=== PATIENT | male | born 1955 | race Two or more races ===

== ENCOUNTER 2023-10-09 15:53 | Inpatient (IN) | payer MEDICARE, MEDICAID ==
[~2023-10-09] VITALS: Ht 195.6 cm; Wt 108.0 kg
[2023-10-09 16:20] VITALS: PULSE 160; RESP 19; O2SAT 100
[2023-10-09] MEDS: ADENOSINE 6 MG/2 ML INJ IV ONE ×4 (16:32→16:47)
[2023-10-09] MEDS: dilTIAZem 25 MG/5 ML VIAL IV ONE ×5 (16:38→23:17)
[2023-10-09] MEDS: DIGOXIN 0.25 MG TAB PO ONE (16:46)
[2023-10-09] MEDS: DIGOXIN 0.25 MG TAB ONE (16:47)
[2023-10-09 16:55] LABS: Basophils # (auto) 0.1 10 ^3/uL (0-0.2); Basophils % (auto) 0.3 % (0.0-2.0); Eosinophils # (auto) 0 10 ^3/uL (0-0.8); Hematocrit 48.2 % (41.0-53.0); Hemoglobin 15.8 g/dL (13.5-17.5); Lymphocytes # (auto) 0.6 10 ^3/uL (0.4-5.4); Mean Corpuscular Hemoglobin 31.2 pg (28.0-32.0); Mean Corpuscular Hgb Conc. 32.8 g/dL (32.0-36.0); Monocytes # (auto) 1.6 10 ^3/uL (0-1.3); Monocytes % (auto) 8.1 % (0.0-12.0); Neutrophils # (auto) 17.5 10 ^3/uL (1.6-8.6); Neutrophils % (auto) 88.6 % (37.0-80.0); Nucleated Red Blood Cells % 0.1 %; Red Blood Cells 5.07 10^6/uL (4.5-5.90); Red Cell Distribution Width 14.3 % (11.8-14.3); White Blood Cell 19.8 10^3/uL (4.4-10.8)
[2023-10-09 17:28] LABS: Lactic Acid w/Reflex 3.9 mmol/L (0.4-2.0)
[2023-10-09] MEDS: dilTIAZem 125mg/125ml BAG KIT 125 ML IV ONE (17:29)
[2023-10-09 17:39] LABS: Erythrocyte Sedimentation Rate 8 mm/hr (0-20)
[2023-10-09] MEDS: AMIODARONE BOLUS KIT 100 ML IV ONE (17:42)
[2023-10-09] MEDS: VANCOMYCIN 1GM/200ML 200 ML IV ONE (17:46)
[2023-10-09] MEDS: SODIUM CHLORIDE 0.9% 1,000 ML IV ONE ×2 (17:52→18:43)
[2023-10-09] MEDS: METOPROLOL TARTRATE 1MG/1ML-5ML VIAL IV ONE ×2 (18:13)
[2023-10-09] MEDS: AMIODARONE 450mg/250ml AE 250 ML IV SCH (18:24)
[2023-10-09] MEDS: DIGOXIN (250MCG/ML) 2 ML AMPULE IV ONE ×2 (18:43→19:01)
[2023-10-09] MEDS ORDERED: PIPERACILLIN-TAZOB 3.375GM 100 ML IV ONE (18:45)
[2023-10-09] MEDS: dilTIAZem 125mg/125ml BAG KIT 100 ML IV SCH (18:45)
[2023-10-09 19:04] LABS: Chloride 93 mmol/L (98-107); Potassium 4.7 mmol/L (3.5-5.1); Sodium 123 mmol/L (136-145)
[2023-10-09 19:05] LABS: Anion Gap 18 (5-15); Calcium 9.2 mg/dL (8.5-10.1); Carbon Dioxide 12 mmol/L (20-30)
[2023-10-09 19:10] LABS: BUN/Creatinine Ratio 14.7 (10.0-20.0); Blood Urea Nitrogen 15 mg/dL (9-23)
[2023-10-09 19:13] LABS: Glucose 487 mg/dL (74-106)
[2023-10-09 19:30] VITALS: PULSE 99; RESP 20; O2SAT 99
[2023-10-09 19:51] LABS: LDL Cholesterol 45 mg/dL (< 100); Triglycerides 181 mg/dL (< 150)
[2023-10-09 19:53] LABS: Cholesterol 97 mg/dL (< 200); HDL Cholesterol 9 mg/dL (40-59)
[2023-10-09] MEDS: CLINDAMYCIN 900MG IV 50 ML IV ONE (20:12)
[2023-10-09] MEDS ORDERED: DOCUSATE SOD 100 MG CAP PO PRN (20:45)
[2023-10-09] MEDS ORDERED: ONDANSETRON HCL 4 MG/2 ML VIAL IV PRN (20:45)
[2023-10-09] MEDS ORDERED: VANCOMYCIN PER PHARMACY 0 MG IV SCH (20:45)
[2023-10-09] MEDS ORDERED: DEXTROSE (50%) 50ML SYRG IV PRN (20:45)
[2023-10-09] MEDS ORDERED: MORPHINE SULFATE INJ 2 MG/ml SYRG IV PRN (20:45)
[2023-10-09] MEDS ORDERED: NITROGLYCERIN 0.4 MG SL TAB SL PRN (20:45)
[2023-10-09] MEDS: SODIUM CHLORIDE 0.9% 1,000 ML IV SCH (21:31)
[2023-10-09] MEDS: ENOXAPARIN SOD 100 MG/1 ML SYRINGE SC SCH (21:31)
[2023-10-09] MEDS: PIPERACILLIN-TAZOB 3.375GM 100 ML IV ONE ×2 (21:31)
[2023-10-09] MEDS: ACCU-CHEK COMFORT CURVE STRIP VI SCH (23:08)
[2023-10-09] MEDS: InsuLIN REG 1unit/0.01ml Soln (100units/ml) SC SCH (23:10)
[2023-10-09] MEDS: AMIODARONE HCL 200 MG TAB PO SCH (23:17)
[2023-10-09] MEDS ORDERED: AMIODARONE 450mg/250ml AE 250 ML IV SCH (23:45)
[2023-10-10] VITALS (70 sets, daily range): BP systolic 94–145; BP diastolic 44–100; PULSE 11–159; RESP 0–26; TEMP 96.6–98.2; O2SAT 93–100
[2023-10-10] MEDS ORDERED: AMIODARONE 450mg/250ml AE 250 ML IV SCH (00:15)
[2023-10-10] MEDS: VANCOMYCIN 1GM/200ML 200 ML IV SCH (04:34)
[2023-10-10] MEDS: CLINDAMYCIN 600MG IV 50 ML IV SCH (04:35)
[2023-10-10] MEDS: PIPERACILLIN-TAZOB 3.375GM 100 ML IV SCH (06:22)
[2023-10-10 06:30] LABS: Urine Epithelial Cast None Seen /hpf (<5)
[2023-10-10] MEDS: MORPHINE SULFATE INJ 2 MG/ml SYRG IV PRN (06:31)
[2023-10-10 06:36] LABS: Urine Bacteria NONE SEEN /hpf (None Seen); Urine Blood Negative /uL (Negative); Urine Clarity Clear (Clear); Urine Color Yellow (Yellow); Urine Protein, UAD Negative (Negative); Urine Specific Gravity 1.041 (1.001-1.035); Urine WBC <1 /hpf (0 - 3)
[2023-10-10 06:53] LABS: Amphetamine Screen, Urine Neg (NEGATIVE); Barbiturate Scree,Urine Neg (NEGATIVE); Benzodiazephine Screen, Urine Neg (NEGATIVE); Cannabinoid Screen, Urine Neg (NEGATIVE); Cocaine Screen, Urine Neg (NEGATIVE); Opiate Scree,Urine Neg (NEGATIVE); Phencyclidine Screen, Urine Neg (NEGATIVE)
[2023-10-10] MEDS: BUPIVACAINE 0.5% P/F INJ 10 ML VIAL ONE (07:12)
[2023-10-10] MEDS: LIDOCAINE 1% HCL (LOCAL ANESTH.) INJ 20ML MDV ONE (07:13)
[2023-10-10 07:28] LABS: Basophils # (auto) 0 10 ^3/uL (0-0.2); Basophils % (auto) 0.4 % (0.0-2.0); Eosinophils # (auto) 0 10 ^3/uL (0-0.8); Eosinophils % (auto) 0.1 % (0.0-7.0); Hematocrit 42.5 % (41.0-53.0); Hemoglobin 13.9 g/dL (13.5-17.5); Lymphocytes # (auto) 0.6 10 ^3/uL (0.4-5.4); Lymphocytes % (auto) 4.7 % (10.0-50.0); Mean Corpuscular Hemoglobin 31.6 pg (28.0-32.0); Mean Corpuscular Hgb Conc. 32.8 g/dL (32.0-36.0); Mean Corpuscular Volume 96.4 fL (80.0-100.0); Monocytes # (auto) 1.3 10 ^3/uL (0-1.3); Monocytes % (auto) 10.2 % (0.0-12.0); Neutrophils % (auto) 84.6 % (37.0-80.0); Red Blood Cells 4.41 10^6/uL (4.5-5.90); Red Cell Distribution Width 14.2 % (11.8-14.3)
[2023-10-10 07:42] LABS: Alanine Aminotransferase 55 U/L (7-40); Albumin 2.3 g/dL (3.2-4.8); Alkaline Phosphatase 92 U/L (46-116); Anion Gap 11 (5-15); Aspartate Aminotransferase 64 U/L (13-40); BUN/Creatinine Ratio 20.4 (10.0-20.0); Blood Urea Nitrogen 22 mg/dL (9-23); Calcium 8.1 mg/dL (8.5-10.1); Carbon Dioxide 17 mmol/L (20-30); Chloride 98 mmol/L (98-107); Potassium 4.2 mmol/L (3.5-5.1); Sodium 126 mmol/L (136-145)
[2023-10-10 07:43] LABS: Bilirubin, Total 0.9 mg/dL (0.2-1.0); Total Protein 5.5 g/dL (5.7-8.2)
[2023-10-10 07:45] LABS: Glucose 525 mg/dL (74-106)
[2023-10-10] MEDS ORDERED: DEXTROSE (50%) 50ML SYRG IV PRN (08:30)
[2023-10-10] MEDS: INSULIN DRIP 100 UNIT/100ML 100 ML IV SCH ×2 (09:09→12:30)
[2023-10-10] MEDS: ACCU-CHEK COMFORT CURVE STRIP VI SCH ×2 (09:10→21:38)
[2023-10-10 09:44] LABS: Base Excess -3.8 mmol/L (-2.0-2.0)
[2023-10-10] MEDS: DAKINS QUARTER STR 0.125% (NaHypochlorite) 473 ML TOPICAL SOL TOP ONE (09:46)
[2023-10-10] MEDS: NICOTINE 7MG/24HR TOPICAL PATCH TD SCH (10:00)
[2023-10-10] MEDS ORDERED: DIGOXIN 0.125 MG TAB PO SCH (10:00)
[2023-10-10] MEDS: PANTOPRAZOLE 40 MG/10 ML VIAL INJ IV SCH (10:22)
[2023-10-10] MEDS: InsuLIN REG 1unit/0.01ml Soln (100units/ml) IV ONE ×2 (12:18→12:44)
[2023-10-10] MEDS: INSULIN LANTUS (GLARGINE) 1 /0.01ml (100units/ml) SC ONE (12:18)
[2023-10-10] MEDS ORDERED: INSULIN DRIP 100 UNIT/100ML 100 ML IV SCH (12:30)
[2023-10-10] MEDS ORDERED: HYDROmorphone HCL 2 MG/ML VL/or syr ONE (13:49)
[2023-10-10] MEDS ORDERED: MIDAZOLAM HCL 2MG/2ML 2ml VIAL (1mg/ml) ONE (13:49)
[2023-10-10] MEDS ORDERED: fentaNYL CITRATE 100 MCG/2 ML VL ONE (13:49)
[2023-10-10] MEDS: CEFEPIME 2GM/50ML NS 50 ML IV SCH (14:00)
[2023-10-10] MEDS ORDERED: ETOMIDATE (2MG/ML) 20ML VIAL IV ONE (14:18)
[2023-10-10 14:24] LABS: Alanine Aminotransferase 59 U/L (7-40); Albumin 2.6 g/dL (3.2-4.8); Alkaline Phosphatase 84 U/L (46-116); Anion Gap 6 (5-15); Aspartate Aminotransferase 63 U/L (13-40); BUN/Creatinine Ratio 38.3 (10.0-20.0); Bilirubin, Total 0.9 mg/dL (0.2-1.0); Blood Urea Nitrogen 36 mg/dL (9-23); Calcium 8.5 mg/dL (8.5-10.1); Carbon Dioxide 23 mmol/L (20-30); Chloride 103 mmol/L (98-107); Glucose 303 mg/dL (74-106); Potassium 3.3 mmol/L (3.5-5.1); Sodium 132 mmol/L (136-145)
[2023-10-10] MEDS ORDERED: MIDAZOLAM HCL 2MG/2ML 2ml VIAL (1mg/ml) IV PRN (14:30)
[2023-10-10] MEDS ORDERED: MORPHINE SULFATE 4 MG/ML SYR/VIAL IV PRN (14:30)
[2023-10-10] MEDS ORDERED: ONDANSETRON HCL 4 MG/2 ML VIAL IV PRN (14:30)
[2023-10-10] MEDS ORDERED: HYDROmorphone HCL 2 MG/ML VL/or syr IV PRN (14:30)
[2023-10-10] MEDS ORDERED: ePHEDrine SULFATE 50 MG/ML AMP IV PRN (14:30)
[2023-10-10] MEDS ORDERED: LABETALOL HCL 5 MG/ML 4ML SYRINGE IV PRN (14:30)
[2023-10-10] MEDS: POVIDONE IODINE 10 % TOPICAL OINT 30GM TOP ONE (15:05)
[2023-10-10] MEDS: NOREPINEPHRINE 8 MG/250ML KIT 250 ML IV SCH (16:30)
[2023-10-10 17:02] LABS: Basophils # (auto) 0.1 10 ^3/uL (0-0.2); Basophils % (auto) 0.6 % (0.0-2.0); Eosinophils # (auto) 0 10 ^3/uL (0-0.8); Eosinophils % (auto) 0.1 % (0.0-7.0); Hematocrit 41.3 % (41.0-53.0); Hemoglobin 13.6 g/dL (13.5-17.5); Lymphocytes # (auto) 0.7 10 ^3/uL (0.4-5.4); Lymphocytes % (auto) 3.3 % (10.0-50.0); Mean Corpuscular Hemoglobin 30.9 pg (28.0-32.0); Mean Corpuscular Hgb Conc. 32.9 g/dL (32.0-36.0); Mean Corpuscular Volume 93.9 fL (80.0-100.0); Monocytes # (auto) 2.9 10 ^3/uL (0-1.3); Monocytes % (auto) 13.3 % (0.0-12.0); Neutrophils # (auto) 17.8 10 ^3/uL (1.6-8.6); Neutrophils % (auto) 82.7 % (37.0-80.0); Red Blood Cells 4.39 10^6/uL (4.5-5.90); Red Cell Distribution Width 14.1 % (11.8-14.3); White Blood Cell 21.5 10^3/uL (4.4-10.8)
[2023-10-10 17:20] LABS: Alanine Aminotransferase 55 U/L (7-40); Albumin 2.5 g/dL (3.2-4.8); Alkaline Phosphatase 95 U/L (46-116); Anion Gap 6 (5-15); Aspartate Aminotransferase 64 U/L (13-40); BUN/Creatinine Ratio 35.4 (10.0-20.0); Bilirubin, Total 0.8 mg/dL (0.2-1.0); Blood Urea Nitrogen 34 mg/dL (9-23); Calcium 8.2 mg/dL (8.5-10.1); Carbon Dioxide 23 mmol/L (20-30); Chloride 106 mmol/L (98-107); Glucose 104 mg/dL (74-106); Potassium 3.3 mmol/L (3.5-5.1); Sodium 135 mmol/L (136-145); Total Protein 5.7 g/dL (5.7-8.2)
[2023-10-10] MEDS: POTASSIUM CHL 20MEQ/100ML 100 ML IV SCH (18:24)
[2023-10-10] MEDS: dilTIAZem 120MG ER CAP PO ONE (18:25)
[2023-10-10] MEDS: HYDROmorphone HCL 2 MG/ML VL/or syr IV ONE (19:10)
[2023-10-10] MEDS: ATORVASTATIN 20 MG TAB PO SCH (21:32)
[2023-10-10] MEDS: InsuLIN REG 1unit/0.01ml Soln (100units/ml) SC SCH (21:35)
[2023-10-10] MEDS: INSULIN LANTUS (GLARGINE) 1 /0.01ml (100units/ml) SC SCH (21:45)
[2023-10-10] MEDS: HYDROmorphone HCL 2 MG/ML VL/or syr IV PRN (22:43)
[2023-10-11] VITALS (54 sets, daily range): BP systolic 95–144; BP diastolic 55–73; PULSE 70–155; RESP 7–25; TEMP 96.9–98.9; O2SAT 85–100
[2023-10-11 03:46] LABS: Basophils # (auto) 0 10 ^3/uL (0-0.2); Basophils % (auto) 0.1 % (0.0-2.0); Eosinophils # (auto) 0 10 ^3/uL (0-0.8); Hematocrit 39.8 % (41.0-53.0); Hemoglobin 13.1 g/dL (13.5-17.5); Lymphocytes # (auto) 0.5 10 ^3/uL (0.4-5.4); Lymphocytes % (auto) 3.4 % (10.0-50.0); Mean Corpuscular Hemoglobin 31.3 pg (28.0-32.0); Mean Corpuscular Hgb Conc. 32.8 g/dL (32.0-36.0); Mean Corpuscular Volume 95.3 fL (80.0-100.0); Monocytes # (auto) 0.5 10 ^3/uL (0-1.3); Monocytes % (auto) 3.6 % (0.0-12.0); Neutrophils # (auto) 12.4 10 ^3/uL (1.6-8.6); Neutrophils % (auto) 92.9 % (37.0-80.0); Red Blood Cells 4.17 10^6/uL (4.5-5.90); Red Cell Distribution Width 14.1 % (11.8-14.3); White Blood Cell 13.3 10^3/uL (4.4-10.8)
[2023-10-11 04:03] LABS: Alanine Aminotransferase 52 U/L (7-40); Albumin 2.3 g/dL (3.2-4.8); Alkaline Phosphatase 73 U/L (46-116); Anion Gap 7 (5-15); Aspartate Aminotransferase 84 U/L (13-40); BUN/Creatinine Ratio 46.4 (10.0-20.0); Blood Urea Nitrogen 39 mg/dL (9-23); Calcium 7.7 mg/dL (8.7-10.4); Carbon Dioxide 21 mmol/L (20-30); Chloride 104 mmol/L (98-107); Magnesium 1.9 mg/dL (1.6-2.6); Potassium 4.6 mmol/L (3.5-5.1); Sodium 132 mmol/L (136-145)
[2023-10-11 04:04] LABS: Bilirubin, Total 0.7 mg/dL (0.2-1.0); Total Protein 5.5 g/dL (5.7-8.2)
[2023-10-11 04:06] LABS: Glucose 353 mg/dL (74-106)
[2023-10-11] MEDS: InsuLIN REG 1unit/0.01ml Soln (100units/ml) SC SCH ×2 (06:28→21:33)
[2023-10-11] MEDS ORDERED: ENOXAPARIN SOD 40 MG/0.4 ML SYRINGE SC SCH (10:00)
[2023-10-11] MEDS ORDERED: dilTIAZem 120MG ER CAP PO SCH (10:00)
[2023-10-11] MEDS: PHENYLEPHRINE INJ 80 MG in SODIUM CHL 0.9% 242 ML IV SCH (10:15)
[2023-10-11] MEDS: VANCOMYCIN 1GM/200ML 200 ML IV SCH (10:36)
[2023-10-11] MEDS: dilTIAZem 125mg/125ml BAG KIT 125 ML IV SCH (10:38)
[2023-10-11] MEDS: DIGOXIN 0.125 MG TAB PO SCH (10:40)
[2023-10-11] MEDS: MAGNESIUM SULFATE 1GM/100ML 100 ML IV ONE (10:41)
[2023-10-11] MEDS: ASPirin 81 mg TAB PO SCH (10:43)
[2023-10-11] MEDS: ENOXAPARIN SOD 100 MG/1 ML SYRINGE SC SCH (11:13)
[2023-10-11] MEDS: dilTIAZem HCL 180MG ER CAP PO SCH (11:26)
[2023-10-11] MEDS: FLECAINIDE ACETATE 50 MG TAB PO SCH (11:27)
[2023-10-11] MEDS: HYDROmorphone HCL 2 MG/ML VL/or syr IV PRN (14:15)
[2023-10-11] MEDS: HYDROcodone-ACET 5/325MG TAB PO PRN (15:29)
[2023-10-11] MEDS ORDERED: INSULIN LANTUS (GLARGINE) 1 /0.01ml (100units/ml) SC SCH (17:00)
[2023-10-11] MEDS ORDERED: INSULIN LISPRO (HUMAN) 100 UNITS/ML ML SC SCH (17:00)
[2023-10-11] MEDS ORDERED: DEXTROSE (50%) 50ML SYRG IV PRN (18:00)
[2023-10-11] MEDS: INSULIN LANTUS (GLARGINE) 1 /0.01ml (100units/ml) SC SCH (20:07)
[2023-10-11] MEDS: ACCU-CHEK COMFORT CURVE STRIP VI SCH (21:32)
[2023-10-12] VITALS (48 sets, daily range): BP systolic 116–171; BP diastolic 55–96; PULSE 69–139; RESP 9–26; TEMP 98.2–98.5; O2SAT 89–97
[2023-10-12 04:19] LABS: Basophils # (auto) 0 10 ^3/uL (0-0.2); Basophils % (auto) 0.1 % (0.0-2.0); Eosinophils # (auto) 0 10 ^3/uL (0-0.8); Hemoglobin 10.3 g/dL (13.5-17.5); Lymphocytes # (auto) 0.5 10 ^3/uL (0.4-5.4); Lymphocytes % (auto) 3.5 % (10.0-50.0); Mean Corpuscular Hemoglobin 31.5 pg (28.0-32.0); Mean Corpuscular Hgb Conc. 31.1 g/dL (32.0-36.0); Mean Corpuscular Volume 101.3 fL (80.0-100.0); Monocytes # (auto) 0.9 10 ^3/uL (0-1.3); Monocytes % (auto) 6.5 % (0.0-12.0); Neutrophils # (auto) 12.5 10 ^3/uL (1.6-8.6); Neutrophils % (auto) 89.9 % (37.0-80.0); Red Blood Cells 3.26 10^6/uL (4.5-5.90); Red Cell Distribution Width 15.1 % (11.8-14.3)
[2023-10-12] MEDS: InsuLIN REG 1unit/0.01ml Soln (100units/ml) SC SCH ×2 (05:55→16:52)
[2023-10-12 07:39] LABS: Alanine Aminotransferase 59 U/L (7-40); Albumin 2.3 g/dL (3.2-4.8); Alkaline Phosphatase 97 U/L (46-116); Aspartate Aminotransferase 91 U/L (13-40); BUN/Creatinine Ratio 24.1 (10.0-20.0); Bilirubin, Total 0.7 mg/dL (0.2-1.0); Blood Urea Nitrogen 20 mg/dL (9-23); Glucose 399 mg/dL (74-106)
[2023-10-12 07:40] LABS: Chloride 103 mmol/L (98-107); Potassium 5.1 mmol/L (3.5-5.1); Sodium 128 mmol/L (136-145)
[2023-10-12 07:43] LABS: Anion Gap 6 (5-15); Calcium 7.9 mg/dL (8.5-10.1); Carbon Dioxide 19 mmol/L (20-30)
[2023-10-12 11:50] LABS: Hematocrit 38.8 % (41.0-53.0); Hemoglobin 12.8 g/dL (13.5-17.5)
[2023-10-12] MEDS: INSULIN LANTUS (GLARGINE) 1 /0.01ml (100units/ml) SC SCH (21:26)
[2023-10-13] VITALS (32 sets, daily range): BP systolic 116–160; BP diastolic 65–93; PULSE 85–157; RESP 12–25; TEMP 97.6–98.4; O2SAT 92–97
[2023-10-13 12:18] LABS: Basophils # (auto) 0 10 ^3/uL (0-0.2); Basophils % (auto) 0.4 % (0.0-2.0); Chloride 106 mmol/L (98-107); Eosinophils # (auto) 0 10 ^3/uL (0-0.8); Eosinophils % (auto) 0.5 % (0.0-7.0); Hematocrit 36.4 % (41.0-53.0); Lymphocytes # (auto) 0.6 10 ^3/uL (0.4-5.4); Lymphocytes % (auto) 11.4 % (10.0-50.0); Mean Corpuscular Hemoglobin 31.3 pg (28.0-32.0); Mean Corpuscular Hgb Conc. 33.1 g/dL (32.0-36.0); Mean Corpuscular Volume 94.7 fL (80.0-100.0); Monocytes # (auto) 0.5 10 ^3/uL (0-1.3); Monocytes % (auto) 10.4 % (0.0-12.0); Neutrophils # (auto) 3.9 10 ^3/uL (1.6-8.6); Neutrophils % (auto) 77.3 % (37.0-80.0); Nucleated Red Blood Cells % 0.2 %; Potassium 3.6 mmol/L (3.5-5.1); Red Blood Cells 3.84 10^6/uL (4.5-5.90); Red Cell Distribution Width 14.4 % (11.8-14.3); Sodium 132 mmol/L (136-145)
[2023-10-13 12:19] LABS: Anion Gap 4 (5-15); Carbon Dioxide 22 mmol/L (20-30)
[2023-10-13 12:20] LABS: Calcium 7.3 mg/dL (8.7-10.4)
[2023-10-13 12:25] LABS: BUN/Creatinine Ratio 29.7 (10.0-20.0); Blood Urea Nitrogen 22 mg/dL (9-23); Magnesium 1.6 mg/dL (1.6-2.6)
[2023-10-13 12:28] LABS: Glucose 278 mg/dL (74-106)
[2023-10-13] MEDS ORDERED: HYDROmorphone HCL 2 MG/ML VL/or syr IV PRN (13:00)
[2023-10-13] MEDS: HYDROmorphone HCL 2 MG/ML VL/or syr IV PRN (22:30)
[2023-10-14] VITALS (16 sets, daily range): BP systolic 120–150; BP diastolic 61–80; PULSE 92–151; RESP 10–31; TEMP 97.8–98.2; O2SAT 89–97
[2023-10-14 03:19] LABS: Basophils # (auto) 0 10 ^3/uL (0-0.2); Basophils % (auto) 0.7 % (0.0-2.0); Eosinophils # (auto) 0 10 ^3/uL (0-0.8); Eosinophils % (auto) 0.5 % (0.0-7.0); Hemoglobin 12.6 g/dL (13.5-17.5); Lymphocytes # (auto) 0.6 10 ^3/uL (0.4-5.4); Lymphocytes % (auto) 8.2 % (10.0-50.0); Mean Corpuscular Hemoglobin 31.1 pg (28.0-32.0); Mean Corpuscular Hgb Conc. 33.1 g/dL (32.0-36.0); Monocytes # (auto) 0.6 10 ^3/uL (0-1.3); Monocytes % (auto) 7.8 % (0.0-12.0); Neutrophils % (auto) 82.8 % (37.0-80.0); Red Blood Cells 4.04 10^6/uL (4.5-5.90); Red Cell Distribution Width 14.4 % (11.8-14.3); White Blood Cell 7.3 10^3/uL (4.4-10.8)
[2023-10-14 03:23] LABS: Alanine Aminotransferase 43 U/L (7-40); Albumin 2.2 g/dL (3.2-4.8); Alkaline Phosphatase 75 U/L (46-116); Anion Gap 1 (5-15); Aspartate Aminotransferase 52 U/L (13-40); BUN/Creatinine Ratio 23.2 (10.0-20.0); Bilirubin, Total 0.7 mg/dL (0.2-1.0); Blood Urea Nitrogen 13 mg/dL (9-23); Calcium 7.4 mg/dL (8.7-10.4); Carbon Dioxide 24 mmol/L (20-30); Chloride 105 mmol/L (98-107); Glucose 268 mg/dL (74-106); Magnesium 1.5 mg/dL (1.6-2.6); Potassium 3.7 mmol/L (3.5-5.1); Sodium 130 mmol/L (136-145); Total Protein 6.4 g/dL (5.7-8.2)
[2023-10-14] MEDS: dilTIAZem 25 MG/5 ML VIAL IV ONE (03:34)
[2023-10-14] MEDS: INSULIN LANTUS (GLARGINE) 1 /0.01ml (100units/ml) SC SCH (22:19)
[2023-10-15] VITALS (15 sets, daily range): BP systolic 125–136; BP diastolic 61–79; PULSE 63–147; RESP 13–26; TEMP 97.6–98.3; O2SAT 90–95
[2023-10-15 05:04] LABS: Basophils # (auto) 0 10 ^3/uL (0-0.2); Basophils % (auto) 0.2 % (0.0-2.0); Eosinophils # (auto) 0.1 10 ^3/uL (0-0.8); Eosinophils % (auto) 0.6 % (0.0-7.0); Hematocrit 35.4 % (41.0-53.0); Hemoglobin 11.6 g/dL (13.5-17.5); Lymphocytes # (auto) 0.6 10 ^3/uL (0.4-5.4); Lymphocytes % (auto) 7.5 % (10.0-50.0); Mean Corpuscular Hemoglobin 31.3 pg (28.0-32.0); Mean Corpuscular Hgb Conc. 32.7 g/dL (32.0-36.0); Mean Corpuscular Volume 95.8 fL (80.0-100.0); Monocytes # (auto) 0.7 10 ^3/uL (0-1.3); Monocytes % (auto) 9.4 % (0.0-12.0); Neutrophils # (auto) 6.5 10 ^3/uL (1.6-8.6); Neutrophils % (auto) 82.3 % (37.0-80.0); Red Blood Cells 3.69 10^6/uL (4.5-5.90); Red Cell Distribution Width 14.4 % (11.8-14.3); White Blood Cell 7.9 10^3/uL (4.4-10.8)
[2023-10-15 05:14] LABS: Calcium 7.4 mg/dL (8.7-10.4); Chloride 104 mmol/L (98-107); Potassium 3.5 mmol/L (3.5-5.1); Sodium 131 mmol/L (136-145)
[2023-10-15 05:15] LABS: Anion Gap 3 (5-15); Carbon Dioxide 24 mmol/L (20-30)
[2023-10-15 05:20] LABS: BUN/Creatinine Ratio 21.8 (10.0-20.0); Blood Urea Nitrogen 12 mg/dL (9-23); Glucose 278 mg/dL (74-106)
[2023-10-15] MEDS: MAGNESIUM SULFATE 1GM/100ML 100 ML IV SCH (09:24)
[2023-10-15] MEDS: METOPROLOL TARTRATE 50 MG TAB PO SCH (09:25)
[2023-10-15] MEDS: DIGOXIN 0.25 MG TAB PO SCH (09:25)
[2023-10-15] MEDS: POTASSIUM CHL 20 Meq TABLET PO ONE (09:27)
[2023-10-15] MEDS ORDERED: BACTRIM 5MG/KG Q8HR PER RX 10 ML IV SCH (13:30)
[2023-10-15] MEDS ORDERED: D5W 5% IV SCH ×3 (14:30→16:00)
[2023-10-15] MEDS ORDERED: SULFAMETH TRIMETH IV SCH ×3 (14:30→16:00)
[2023-10-15] MEDS: SULFAMETH TRIMETH IV SCH (16:00)
[2023-10-15] MEDS: D5W 5% IV SCH (16:00)
[2023-10-15] MEDS: INSULIN LANTUS (GLARGINE) 1 /0.01ml (100units/ml) SC SCH (21:57)
[2023-10-16] VITALS (16 sets, daily range): BP systolic 114–131; BP diastolic 60–68; PULSE 46–89; RESP 11–28; TEMP 97.3–98.3; O2SAT 90–97
[2023-10-16 04:49] LABS: Basophils # (auto) 0 10 ^3/uL (0-0.2); Basophils % (auto) 0.2 % (0.0-2.0); Eosinophils # (auto) 0.1 10 ^3/uL (0-0.8); Eosinophils % (auto) 0.7 % (0.0-7.0); Hematocrit 36.4 % (41.0-53.0); Lymphocytes # (auto) 0.7 10 ^3/uL (0.4-5.4); Lymphocytes % (auto) 5.8 % (10.0-50.0); Mean Corpuscular Hemoglobin 31.4 pg (28.0-32.0); Mean Corpuscular Hgb Conc. 32.9 g/dL (32.0-36.0); Mean Corpuscular Volume 95.6 fL (80.0-100.0); Monocytes # (auto) 1.2 10 ^3/uL (0-1.3); Monocytes % (auto) 9.5 % (0.0-12.0); Neutrophils # (auto) 10.9 10 ^3/uL (1.6-8.6); Neutrophils % (auto) 83.8 % (37.0-80.0); Red Blood Cells 3.81 10^6/uL (4.5-5.90); Red Cell Distribution Width 14.7 % (11.8-14.3)
[2023-10-16 04:59] LABS: Alanine Aminotransferase 39 U/L (7-40); Albumin 2.2 g/dL (3.2-4.8); Alkaline Phosphatase 100 U/L (46-116); Anion Gap 2 (5-15); Aspartate Aminotransferase 42 U/L (13-40); BUN/Creatinine Ratio 23.2 (10.0-20.0); Blood Urea Nitrogen 16 mg/dL (9-23); Calcium 7.5 mg/dL (8.7-10.4); Carbon Dioxide 24 mmol/L (20-30); Chloride 102 mmol/L (98-107); Glucose 284 mg/dL (74-106); Magnesium 1.9 mg/dL (1.6-2.6); Potassium 4.2 mmol/L (3.5-5.1); Sodium 128 mmol/L (136-145)
[2023-10-16 05:00] LABS: Bilirubin, Total 0.8 mg/dL (0.2-1.0); Phosphorus 2.3 mg/dL (2.4-5.1); Total Protein 6.8 g/dL (5.7-8.2)
[2023-10-16] MEDS: MAGNESIUM SULFATE 1GM/100ML 100 ML IV SCH (09:35)
[2023-10-16] MEDS: SODIUM PHOSPHATES 20 MEQ in SODIUM CHL 0.9% 100 ML IV ONE (09:35)
[2023-10-16] MEDS ORDERED: SULFAMETH-TRIMETH 80/16MG-ML 20 ML in D5W 5% 500 ML IV SCH (14:00)
[2023-10-16] MEDS: MEROPENEM 2 GM in SODIUM CHL 0.9% 250 ML IV SCH (14:55)
[2023-10-17] VITALS (23 sets, daily range): BP systolic 106–150; BP diastolic 55–96; PULSE 94–136; RESP 14–35; TEMP 97.2–98.3; O2SAT 90–96
[2023-10-17 04:33] LABS: Basophils # (auto) 0 10 ^3/uL (0-0.2); Basophils % (auto) 0.3 % (0.0-2.0); Eosinophils # (auto) 0.1 10 ^3/uL (0-0.8); Hemoglobin 12.2 g/dL (13.5-17.5); Lymphocytes # (auto) 0.8 10 ^3/uL (0.4-5.4); Lymphocytes % (auto) 9.2 % (10.0-50.0); Mean Corpuscular Hemoglobin 31.4 pg (28.0-32.0); Mean Corpuscular Volume 95.3 fL (80.0-100.0); Monocytes % (auto) 11.4 % (0.0-12.0); Neutrophils # (auto) 7.1 10 ^3/uL (1.6-8.6); Neutrophils % (auto) 78.1 % (37.0-80.0); Red Blood Cells 3.88 10^6/uL (4.5-5.90); Red Cell Distribution Width 14.9 % (11.8-14.3); White Blood Cell 9.1 10^3/uL (4.4-10.8)
[2023-10-17 04:51] LABS: Alanine Aminotransferase 38 U/L (7-40); Albumin 2.1 g/dL (3.2-4.8); Alkaline Phosphatase 110 U/L (46-116); Anion Gap 2 (5-15); Aspartate Aminotransferase 51 U/L (13-40); BUN/Creatinine Ratio 25.8 (10.0-20.0); Blood Urea Nitrogen 17 mg/dL (9-23); Calcium 7.2 mg/dL (8.7-10.4); Carbon Dioxide 25 mmol/L (20-30); Chloride 101 mmol/L (98-107); Glucose 251 mg/dL (74-106); Potassium 4.4 mmol/L (3.5-5.1); Sodium 128 mmol/L (136-145)
[2023-10-17 04:52] LABS: Bilirubin, Total 0.7 mg/dL (0.2-1.0); Total Protein 6.6 g/dL (5.7-8.2)
[2023-10-17] MEDS: APIXABAN 5 MG TAB PO SCH (09:59)
[2023-10-17] MEDS: FLECAINIDE ACETATE 50 MG TAB PO SCH (09:59)
[2023-10-17] MEDS: INSULIN LANTUS (GLARGINE) 1 /0.01ml (100units/ml) SC SCH (22:02)
[2023-10-18] VITALS (16 sets, daily range): BP systolic 110–136; BP diastolic 68–96; PULSE 116–132; RESP 12–31; TEMP 97.8–98.6; O2SAT 92–96
[2023-10-18 05:07] LABS: Basophils # (auto) 0 10 ^3/uL (0-0.2); Basophils % (auto) 0.5 % (0.0-2.0); Eosinophils # (auto) 0.1 10 ^3/uL (0-0.8); Eosinophils % (auto) 1.1 % (0.0-7.0); Hematocrit 36.6 % (41.0-53.0); Hemoglobin 12.1 g/dL (13.5-17.5); Lymphocytes # (auto) 0.8 10 ^3/uL (0.4-5.4); Mean Corpuscular Hemoglobin 31.7 pg (28.0-32.0); Mean Corpuscular Hgb Conc. 33.1 g/dL (32.0-36.0); Mean Corpuscular Volume 95.6 fL (80.0-100.0); Monocytes # (auto) 0.7 10 ^3/uL (0-1.3); Monocytes % (auto) 12.4 % (0.0-12.0); Neutrophils # (auto) 4.4 10 ^3/uL (1.6-8.6); Red Blood Cells 3.83 10^6/uL (4.5-5.90); Red Cell Distribution Width 14.7 % (11.8-14.3); White Blood Cell 6.1 10^3/uL (4.4-10.8)
[2023-10-18 05:24] LABS: Alanine Aminotransferase 40 U/L (7-40); Albumin 2.2 g/dL (3.2-4.8); Alkaline Phosphatase 124 U/L (46-116); Anion Gap 2 (5-15); Aspartate Aminotransferase 47 U/L (13-40); BUN/Creatinine Ratio 23.3 (10.0-20.0); Bilirubin, Total 0.8 mg/dL (0.2-1.0); Blood Urea Nitrogen 14 mg/dL (9-23); Calcium 7.3 mg/dL (8.7-10.4); Carbon Dioxide 26 mmol/L (20-30); Chloride 100 mmol/L (98-107); Glucose 232 mg/dL (74-106); Potassium 4.3 mmol/L (3.5-5.1); Sodium 128 mmol/L (136-145); Total Protein 6.6 g/dL (5.7-8.2)
[2023-10-18] MEDS: FLECAINIDE ACETATE 50 MG TAB PO ONE (09:26)
[2023-10-18] MEDS: FUROSEMIDE 20 MG/2 ML VIAL IV SCH (09:27)
[2023-10-18] MEDS: MAGNESIUM OXIDE 400 MG TAB PO SCH (09:29)
[2023-10-18] MEDS ORDERED: HYDR-4902 PO (10:41)
[2023-10-18] MEDS ORDERED: APIX5TAB PO (10:57)
[2023-10-18] MEDS ORDERED: ATOR20TA50 PO (10:57)
[2023-10-18] MEDS ORDERED: CIPR500T4 PO (11:07)
[2023-10-18] MEDS ORDERED: FLE50T PO (11:07)
[2023-10-18] MEDS ORDERED: DIGO0.25 PO (11:07)
[2023-10-18] MEDS ORDERED: DILT-102 PO (11:07)
[2023-10-18] MEDS: FLECAINIDE ACETATE 50 MG TAB PO SCH (21:44)
[2023-10-19] VITALS: BP 133/76; PULSE 115; PULSE 131; RESP 15; RESP 19; TEMP 98.2; O2SAT 95; O2SAT 98
[2023-10-19 02:00] VITALS: BP 130/71; PULSE 115; RESP 20; RESP 30; O2SAT 93; O2SAT 97
[2023-10-19 04:00] VITALS: BP 136/79; PULSE 119; PULSE 120; RESP 20; RESP 22; O2SAT 95
[2023-10-19 06:00] VITALS: BP 127/80; PULSE 121; RESP 13; RESP 20; TEMP 98.4; O2SAT 92; O2SAT 95
[2023-10-19] MEDS ORDERED: METO25TA93 PO (06:55)
[2023-10-19 08:00] VITALS: BP 133/83; PULSE 122; RESP 19; RESP 23; TEMP 97.6; O2SAT 92; O2SAT 93
[2023-10-19 08:27] VITALS: BP 121/78; PULSE 133; TEMP 36.9
[2023-10-19] MEDS ORDERED: METOPROLOL SUCCINATE XL 50 MG TAB PO SCH (10:00)
== END 2023-10-19 09:50 | disposition home health service (06) | DRG 710 ==
LOC: EDBD 15:53 → ER 15:53 → TELE 20:42 → ICU WEST 10-10 04:17 → DOU IN ICU 10-13 17:45
PROVIDERS: ADMIT Internal Medicine Pulmonary Disease; ATTEND Emergency Medicine
PROC: 0Y6J0Z1 Detachment at Left Lower Leg, High, Open Approach (ICD-10-PCS; principal; 2023-10-10 14:09)
DX: A41.9 Sepsis, unspecified organism (principal); M72.6 Necrotizing fasciitis; I21.A1 Myocardial infarction type 2; E11.10 Type 2 diabetes mellitus with ketoacidosis without coma; I10 Essential (primary) hypertension; I47.10 Supraventricular tachycardia, unspecified; F17.210 Nicotine dependence, cigarettes, uncomplicated; L08.9 Local infection of the skin and subcutaneous tissue, unspecified; E11.621 Type 2 diabetes mellitus with foot ulcer; I47.19 Other supraventricular tachycardia; I48.92 Unspecified atrial flutter; M86.8X7 Other osteomyelitis, ankle and foot; E11.69 Type 2 diabetes mellitus with other specified complication; L97.529 Non-pressure chronic ulcer of other part of left foot with unspecified severity; I48.91 Unspecified atrial fibrillation; F15.10 Other stimulant abuse, uncomplicated; Z91.199 Patient's noncompliance with other medical treatment and regimen due to unspecified reason; Z82.5 Family history of asthma and other chronic lower respiratory diseases; Z82.49 Family history of ischemic heart disease and other diseases of the circulatory system
CPT/HCPCS: 36415; 36600; 71045; 71275; 73700; 76870; 80048; 80053; 80061; 80162; 80202; 80307; 81001; 82805; 82962; 83036; 83605; 83735; 83880; 84100; 84443; 84484; 85014; 85018; 85025; 85379; 85652; 86850; 86900; 86901; 87040; 87077; 87081; 87186; 87205; 93005; 93306; 93926; 93970; 96365; 96366; 96367; 96376; 96379; 97110; 97116; 97163; 97530; 99291; C9113; G0378; J0153; J0692; J1815; J2001; J2250; J2543; J3480; J3490

== ENCOUNTER 2023-10-29 17:35 | Inpatient (IN) | payer MEDICARE, MEDICAID ==
[~2023-10-29] VITALS: Ht 195.6 cm; Wt 95.9 kg
[~2023-10-29 17:35] MED LIST: APIX5TAB PO; ATOR20TA50 PO; CIPR500T4 PO; DIGO0.25 PO; FLE50T PO; HYDR-4902 PO; METO25TA93 PO
[2023-10-29] MEDS ORDERED: LORazepam 2MG/ML-1ML VIAL IV PRN (19:00)
[2023-10-29] MEDS ORDERED: ACETAMINOPHEN 325 MG TAB PO PRN (19:00)
[2023-10-29 19:53] LABS: Basophils # (auto) 0 10 ^3/uL (0-0.2); Basophils % (auto) 0.7 % (0.0-2.0); Eosinophils # (auto) 0.1 10 ^3/uL (0-0.8); Eosinophils % (auto) 1.8 % (0.0-7.0); Hematocrit 33.4 % (41.0-53.0); Hemoglobin 11.1 g/dL (13.5-17.5); Lymphocytes # (auto) 0.6 10 ^3/uL (0.4-5.4); Lymphocytes % (auto) 14.9 % (10.0-50.0); Mean Corpuscular Hemoglobin 31.7 pg (28.0-32.0); Mean Corpuscular Hgb Conc. 33.2 g/dL (32.0-36.0); Mean Corpuscular Volume 95.5 fL (80.0-100.0); Monocytes # (auto) 0.3 10 ^3/uL (0-1.3); Neutrophils # (auto) 3.2 10 ^3/uL (1.6-8.6); Neutrophils % (auto) 74.6 % (37.0-80.0); Nucleated Red Blood Cells % 0.1 %; White Blood Cell 4.3 10^3/uL (4.4-10.8)
[2023-10-29 20:12] LABS: Alanine Aminotransferase 32 U/L (7-40); Albumin 2.7 g/dL (3.2-4.8); Alkaline Phosphatase 106 U/L (46-116); Anion Gap 5 (5-15); Aspartate Aminotransferase 55 U/L (13-40); BUN/Creatinine Ratio 20.3 (10.0-20.0); Blood Urea Nitrogen 13 mg/dL (9-23); Carbon Dioxide 24 mmol/L (20-30); Chloride 107 mmol/L (98-107); Glucose 289 mg/dL (74-106); Sodium 136 mmol/L (136-145)
[2023-10-29 20:13] LABS: Bilirubin, Total 0.6 mg/dL (0.2-1.0); Total Protein 7.1 g/dL (5.7-8.2)
[2023-10-29 20:21] LABS: CRP High Sensitivity 7.67 mg/dL (<1.0)
[2023-10-29 20:33] LABS: Erythrocyte Sedimentation Rate 62 mm/hr (0-20)
[2023-10-30 03:05] VITALS: PULSE 157; RESP 20; O2SAT 93
[2023-10-30] MEDS: dilTIAZem 25 MG/5 ML VIAL IV ONE (03:27)
[2023-10-30] MEDS: SODIUM CHLORIDE 0.9% 2,750 ML IV ONE (03:28)
[2023-10-30] MEDS: MORPHINE SULFATE 4 MG/ML SYR/VIAL IV PRN ×2 (03:30→08:16)
[2023-10-30 03:40] LABS: Amphetamine Screen, Urine Neg (NEGATIVE); Barbiturate Scree,Urine Neg (NEGATIVE); Benzodiazephine Screen, Urine Neg (NEGATIVE); Cannabinoid Screen, Urine Neg (NEGATIVE); Cocaine Screen, Urine Neg (NEGATIVE); Opiate Scree,Urine Neg (NEGATIVE); Phencyclidine Screen, Urine Neg (NEGATIVE)
[2023-10-30 04:02] LABS: Urine Bacteria NONE SEEN /hpf (None Seen); Urine Blood 2+ /uL (Negative); Urine Clarity Clear (Clear); Urine Color Yellow (Yellow); Urine Mucus FEW (None Seen); Urine Protein, UAD 1+ (Negative); Urine Specific Gravity 1.028 (1.001-1.035); Urine WBC 1 /hpf (0 - 3); Urine pH 5.5 (5.0-8.0)
[2023-10-30] MEDS ORDERED: ONDANSETRON HCL 4 MG/2 ML VIAL IV PRN (04:15)
[2023-10-30] MEDS ORDERED: ACETAMINOPHEN 325 MG TAB PO PRN (04:15)
[2023-10-30] MEDS ORDERED: NITROGLYCERIN 0.4 MG SL TAB SL PRN (04:15)
[2023-10-30] MEDS ORDERED: DEXTROSE (50%) 50ML SYRG IV PRN (04:15)
[2023-10-30] MEDS: AMIODARONE BOLUS KIT 100 ML IV ONE (06:37)
[2023-10-30] MEDS: ACCU-CHEK COMFORT CURVE STRIP VI SCH (06:48)
[2023-10-30] MEDS: AMIODARONE 450mg/250ml AE 250 ML IV SCH (06:50)
[2023-10-30] MEDS: DIGOXIN (250MCG/ML) 2 ML AMPULE IV ONE (06:53)
[2023-10-30] MEDS: InsuLIN REG 1unit/0.01ml Soln (100units/ml) SC SCH (06:59)
[2023-10-30 07:30] VITALS: PULSE 135; RESP 23; O2SAT 96
[2023-10-30 08:54] LABS: Basophils # (auto) 0 10 ^3/uL (0-0.2); Basophils % (auto) 1.1 % (0.0-2.0); Eosinophils # (auto) 0.1 10 ^3/uL (0-0.8); Eosinophils % (auto) 1.6 % (0.0-7.0); Hemoglobin 10.6 g/dL (13.5-17.5); Lymphocytes # (auto) 0.6 10 ^3/uL (0.4-5.4); Lymphocytes % (auto) 18.4 % (10.0-50.0); Mean Corpuscular Volume 96.8 fL (80.0-100.0); Monocytes # (auto) 0.3 10 ^3/uL (0-1.3); Monocytes % (auto) 9.3 % (0.0-12.0); Neutrophils # (auto) 2.3 10 ^3/uL (1.6-8.6); Neutrophils % (auto) 69.6 % (37.0-80.0); Nucleated Red Blood Cells % 0.1 %; Red Blood Cells 3.41 10^6/uL (4.5-5.90); Red Cell Distribution Width 15.5 % (11.8-14.3); White Blood Cell 3.3 10^3/uL (4.4-10.8)
[2023-10-30 09:08] LABS: Alanine Aminotransferase 31 U/L (7-40); Albumin 2.7 g/dL (3.2-4.8); Alkaline Phosphatase 98 U/L (46-116); Anion Gap 4 (5-15); Aspartate Aminotransferase 52 U/L (13-40); BUN/Creatinine Ratio 17.1 (10.0-20.0); Bilirubin, Total 0.6 mg/dL (0.2-1.0); Blood Urea Nitrogen 13 mg/dL (9-23); Calcium 7.6 mg/dL (8.7-10.4); Carbon Dioxide 25 mmol/L (20-30); Chloride 108 mmol/L (98-107); Glucose 285 mg/dL (74-106); Magnesium 1.6 mg/dL (1.6-2.6); Potassium 4.2 mmol/L (3.5-5.1); Sodium 137 mmol/L (136-145); Total Protein 7.2 g/dL (5.7-8.2)
[2023-10-30 09:19] LABS: INR 1.11 (0.9-1.15); Prothrombin Time 11.6 sec (9.3-11.8)
[2023-10-30] MEDS: DIGOXIN 0.25 MG TAB PO SCH (09:31)
[2023-10-30] MEDS: APIXABAN 5 MG TAB PO SCH (09:31)
[2023-10-30] MEDS: LISINOPRIL 20 MG TAB PO SCH (09:32)
[2023-10-30] MEDS: METOPROLOL SUCCINATE XL 50 MG TAB PO SCH (09:32)
[2023-10-30] MEDS: CIPROFLOXACIN HCL 500 MG TAB PO SCH (09:33)
[2023-10-30] MEDS: IOHEXOL 350 MG/ML 100ML IJ ONE (13:58)
[2023-10-30] MEDS ORDERED: LABETALOL HCL 5 MG/ML 4ML SYRINGE IV PRN (14:00)
[2023-10-30 19:45] VITALS: PULSE 121; RESP 16; O2SAT 97
[2023-10-30] MEDS: ATORVASTATIN 20 MG TAB PO SCH (22:52)
[2023-10-30] MEDS: HYDROcodone-ACET 5/325MG TAB PO PRN (23:00)
[2023-10-31] VITALS (8 sets, daily range): BP systolic 134–151; BP diastolic 73–102; PULSE 51–145; RESP 18–21; TEMP 97.4–98; O2SAT 92–95
[2023-10-31 06:36] LABS: Basophils # (auto) 0 10 ^3/uL (0-0.2); Basophils % (auto) 0.7 % (0.0-2.0); Eosinophils # (auto) 0.1 10 ^3/uL (0-0.8); Eosinophils % (auto) 3.5 % (0.0-7.0); Hematocrit 34.4 % (41.0-53.0); Hemoglobin 11.2 g/dL (13.5-17.5); Lymphocytes # (auto) 0.8 10 ^3/uL (0.4-5.4); Lymphocytes % (auto) 21.7 % (10.0-50.0); Mean Corpuscular Hemoglobin 31.3 pg (28.0-32.0); Mean Corpuscular Hgb Conc. 32.7 g/dL (32.0-36.0); Mean Corpuscular Volume 95.6 fL (80.0-100.0); Monocytes # (auto) 0.3 10 ^3/uL (0-1.3); Monocytes % (auto) 9.3 % (0.0-12.0); Neutrophils # (auto) 2.3 10 ^3/uL (1.6-8.6); Neutrophils % (auto) 64.8 % (37.0-80.0); Nucleated Red Blood Cells % 0.1 %; Red Blood Cells 3.59 10^6/uL (4.5-5.90); Red Cell Distribution Width 14.9 % (11.8-14.3); White Blood Cell 3.5 10^3/uL (4.4-10.8)
[2023-10-31 06:50] LABS: Alanine Aminotransferase 30 U/L (7-40); Albumin 2.7 g/dL (3.2-4.8); Alkaline Phosphatase 97 U/L (46-116); Anion Gap 3 (5-15); Aspartate Aminotransferase 56 U/L (13-40); BUN/Creatinine Ratio 17.2 (10.0-20.0); Bilirubin, Total 0.7 mg/dL (0.2-1.0); Blood Urea Nitrogen 11 mg/dL (9-23); Carbon Dioxide 25 mmol/L (20-30); Chloride 107 mmol/L (98-107); Potassium 3.9 mmol/L (3.5-5.1); Sodium 135 mmol/L (136-145)
[2023-10-31 06:51] LABS: Total Protein 7.1 g/dL (5.7-8.2)
[2023-10-31 06:56] LABS: Glucose 145 mg/dL (74-106)
[2023-10-31] MEDS: METOPROLOL SUCCINATE XL 50 MG TAB PO ONE (18:29)
[2023-10-31] MEDS ORDERED: DEXTROSE (50%) 50ML SYRG IV PRN (19:45)
[2023-10-31] MEDS: APIXABAN 5 MG TAB PO SCH (21:55)
[2023-10-31] MEDS: ACCU-CHEK COMFORT CURVE STRIP VI SCH (21:56)
[2023-10-31] MEDS: InsuLIN REG 1unit/0.01ml Soln (100units/ml) SC SCH (21:59)
[2023-11-01 04:19] VITALS: BP 142/86; PULSE 82; RESP 21; TEMP 97.4; O2SAT 100
[2023-11-01] MEDS: InsuLIN REG 1unit/0.01ml Soln (100units/ml) SC SCH (06:18)
[2023-11-01] MEDS: INSULIN LANTUS (GLARGINE) 1 /0.01ml (100units/ml) SC SCH (06:18)
[2023-11-01 06:26] LABS: Alanine Aminotransferase 32 U/L (7-40); Albumin 2.6 g/dL (3.2-4.8); Alkaline Phosphatase 97 U/L (46-116); Anion Gap 2 (5-15); Aspartate Aminotransferase 63 U/L (13-40); BUN/Creatinine Ratio 15.6 (10.0-20.0); Blood Urea Nitrogen 10 mg/dL (9-23); Calcium 7.8 mg/dL (8.7-10.4); Carbon Dioxide 26 mmol/L (20-30); Chloride 107 mmol/L (98-107); Glucose 157 mg/dL (74-106); Magnesium 1.7 mg/dL (1.6-2.6); Sodium 135 mmol/L (136-145)
[2023-11-01 06:27] LABS: Bilirubin, Total 0.7 mg/dL (0.2-1.0); Total Protein 7.3 g/dL (5.7-8.2)
[2023-11-01 06:30] LABS: Hematocrit 37.6 % (41.0-53.0); Hemoglobin 11.7 g/dL (13.5-17.5); Mean Corpuscular Hemoglobin 30.9 pg (28.0-32.0); Mean Corpuscular Volume 99.7 fL (80.0-100.0); Red Blood Cells 3.77 10^6/uL (4.5-5.90); Red Cell Distribution Width 15.5 % (11.8-14.3); White Blood Cell 4.1 10^3/uL (4.4-10.8)
[2023-11-01 06:34] LABS: Band Neutrophils % (manual) 0; Basophils % (manual) 0 (0.0-2.0); Blast Cells 0; Metamyelocytes % 0; Myelocytes % 0; Promyelocytes % 0; Reactive Lymphocytes 0
[2023-11-01 08:00] VITALS: BP 146/75; PULSE 111; PULSE 144; PULSE 51; RESP 18; TEMP 98.3; O2SAT 99
[2023-11-01 08:16] LABS: Eosinophils % (manual) 2 (0-7); Lymphocytes % (manual) 19 (10.0-50.0); Monocytes % (manual) 10 (0-12)
[2023-11-01 08:17] LABS: Platelet Estimate Decreased; RBC Morphology Normal
[2023-11-01] MEDS: METOPROLOL SUCCINATE XL 50 MG TAB PO SCH (08:31)
[2023-11-01] MEDS: SPIRONOLACTONE 25 MG TAB PO SCH (09:32)
[2023-11-01] MEDS: EMPAGLIFLOZIN 10 MG TAB PO SCH (09:32)
[2023-11-01] MEDS ORDERED: METOPROLOL SUCCINATE XL 50 MG TAB PO SCH (10:00)
[2023-11-01 12:00] VITALS: BP 137/80; PULSE 49; RESP 16; TEMP 97.6; O2SAT 100
[2023-11-01 16:00] VITALS: BP 143/80; PULSE 50; RESP 16; TEMP 97.6; O2SAT 99
[2023-11-01 20:00] VITALS: PULSE 114; RESP 18
[2023-11-01] MEDS: MAGNESIUM OXIDE 400 MG TAB PO ONE (20:50)
[2023-11-01] MEDS: METOPROLOL SUCCINATE XL 50 MG TAB PO ONE (20:53)
[2023-11-01 21:16] LABS: Chloride 105 mmol/L (98-107); Potassium 4.1 mmol/L (3.5-5.1); Sodium 135 mmol/L (136-145)
[2023-11-01 21:17] LABS: Anion Gap 3 (5-15); Carbon Dioxide 27 mmol/L (20-30)
[2023-11-01 21:22] LABS: BUN/Creatinine Ratio 15.1 (10.0-20.0); Blood Urea Nitrogen 11 mg/dL (9-23); Glucose 126 mg/dL (74-106)
[2023-11-01 21:23] LABS: Magnesium 1.6 mg/dL (1.6-2.6)
[2023-11-01 22:00] VITALS: BP 122/88; PULSE 66; RESP 20; TEMP 97.9; O2SAT 99
[2023-11-02] VITALS (8 sets, daily range): BP systolic 119–160; BP diastolic 84–115; PULSE 110–146; RESP 16–20; TEMP 97.4–98.1; O2SAT 95–98
[2023-11-02 06:19] LABS: Basophils # (auto) 0 10 ^3/uL (0-0.2); Basophils % (auto) 1.2 % (0.0-2.0); Eosinophils # (auto) 0.2 10 ^3/uL (0-0.8); Eosinophils % (auto) 3.8 % (0.0-7.0); Hematocrit 39.1 % (41.0-53.0); Hemoglobin 12.8 g/dL (13.5-17.5); Lymphocytes # (auto) 0.7 10 ^3/uL (0.4-5.4); Lymphocytes % (auto) 18.1 % (10.0-50.0); Mean Corpuscular Hemoglobin 31.2 pg (28.0-32.0); Mean Corpuscular Hgb Conc. 32.6 g/dL (32.0-36.0); Mean Corpuscular Volume 95.5 fL (80.0-100.0); Monocytes # (auto) 0.5 10 ^3/uL (0-1.3); Monocytes % (auto) 11.9 % (0.0-12.0); Neutrophils # (auto) 2.6 10 ^3/uL (1.6-8.6); Nucleated Red Blood Cells % 0.3 %; Red Cell Distribution Width 14.7 % (11.8-14.3)
[2023-11-02 06:43] LABS: Alanine Aminotransferase 38 U/L (7-40); Albumin 2.7 g/dL (3.2-4.8); Alkaline Phosphatase 103 U/L (46-116); Anion Gap 5 (5-15); Aspartate Aminotransferase 85 U/L (13-40); BUN/Creatinine Ratio 14.7 (10.0-20.0); Bilirubin, Total 0.7 mg/dL (0.2-1.0); Blood Urea Nitrogen 10 mg/dL (9-23); Calcium 8.2 mg/dL (8.7-10.4); Carbon Dioxide 26 mmol/L (20-30); Chloride 105 mmol/L (98-107); Glucose 88 mg/dL (74-106); Magnesium 1.9 mg/dL (1.6-2.6); Sodium 136 mmol/L (136-145); Total Protein 7.8 g/dL (5.7-8.2)
[2023-11-02 13:57] LABS: % Iron Saturation 12.9 % (20-55)
[2023-11-02] MEDS: METOPROLOL SUCCINATE XL 50 MG TAB PO ONE (15:49)
[2023-11-03] VITALS (8 sets, daily range): BP systolic 117–150; BP diastolic 73–79; PULSE 51–149; RESP 17–20; TEMP 97.4–98.2; O2SAT 95–100
[2023-11-03 07:42] LABS: Basophils # (auto) 0.1 10 ^3/uL (0-0.2); Basophils % (auto) 1.4 % (0.0-2.0); Eosinophils # (auto) 0.1 10 ^3/uL (0-0.8); Hematocrit 39.6 % (41.0-53.0); Hemoglobin 12.8 g/dL (13.5-17.5); Lymphocytes # (auto) 0.8 10 ^3/uL (0.4-5.4); Lymphocytes % (auto) 20.7 % (10.0-50.0); Mean Corpuscular Hemoglobin 31.2 pg (28.0-32.0); Mean Corpuscular Hgb Conc. 32.4 g/dL (32.0-36.0); Mean Corpuscular Volume 96.2 fL (80.0-100.0); Monocytes # (auto) 0.4 10 ^3/uL (0-1.3); Monocytes % (auto) 11.7 % (0.0-12.0); Neutrophils # (auto) 2.3 10 ^3/uL (1.6-8.6); Neutrophils % (auto) 62.2 % (37.0-80.0); Nucleated Red Blood Cells % 0.3 %; Red Blood Cells 4.12 10^6/uL (4.5-5.90); Red Cell Distribution Width 15.1 % (11.8-14.3); White Blood Cell 3.7 10^3/uL (4.4-10.8)
[2023-11-03 08:03] LABS: Alanine Aminotransferase 39 U/L (7-40); Albumin 2.8 g/dL (3.2-4.8); Alkaline Phosphatase 102 U/L (46-116); Anion Gap 5 (5-15); Aspartate Aminotransferase 85 U/L (13-40); BUN/Creatinine Ratio 14.5 (10.0-20.0); Bilirubin, Total 0.5 mg/dL (0.2-1.0); Blood Urea Nitrogen 12 mg/dL (9-23); Calcium 8.1 mg/dL (8.7-10.4); Carbon Dioxide 28 mmol/L (20-30); Chloride 103 mmol/L (98-107); Glucose 177 mg/dL (74-106); Magnesium 1.9 mg/dL (1.6-2.6); Potassium 3.8 mmol/L (3.5-5.1); Sodium 136 mmol/L (136-145); Total Protein 7.6 g/dL (5.7-8.2)
[2023-11-03] MEDS: METOPROLOL SUCCINATE XL 50 MG TAB PO SCH (09:44)
[2023-11-03] MEDS ORDERED: VANCOMYCIN 1GM/200ML 200 ML IV SCH (10:00)
[2023-11-03] MEDS ORDERED: VANCOMYCIN PER PHARMACY 0 MG IV SCH (10:30)
[2023-11-03] MEDS: VANCOMYCIN 1GM/200ML 200 ML IV SCH (11:16)
[2023-11-04 05:00] VITALS: BP 129/97; PULSE 62; RESP 18; TEMP 97.4; O2SAT 100
[2023-11-04 07:26] LABS: Basophils # (auto) 0.1 10 ^3/uL (0-0.2); Eosinophils # (auto) 0.1 10 ^3/uL (0-0.8); Eosinophils % (auto) 3.5 % (0.0-7.0); Hematocrit 39.2 % (41.0-53.0); Hemoglobin 12.6 g/dL (13.5-17.5); Lymphocytes # (auto) 0.7 10 ^3/uL (0.4-5.4); Lymphocytes % (auto) 22.8 % (10.0-50.0); Mean Corpuscular Hemoglobin 31.2 pg (28.0-32.0); Mean Corpuscular Hgb Conc. 32.2 g/dL (32.0-36.0); Monocytes # (auto) 0.4 10 ^3/uL (0-1.3); Neutrophils # (auto) 1.8 10 ^3/uL (1.6-8.6); Neutrophils % (auto) 57.7 % (37.0-80.0); Nucleated Red Blood Cells % 0.1 %; Red Blood Cells 4.05 10^6/uL (4.5-5.90); White Blood Cell 3.2 10^3/uL (4.4-10.8)
[2023-11-04 07:58] LABS: Alanine Aminotransferase 41 U/L (7-40); Alkaline Phosphatase 100 U/L (46-116); Anion Gap 5 (5-15); BUN/Creatinine Ratio 14.1 (10.0-20.0); Blood Urea Nitrogen 11 mg/dL (9-23); Calcium 8.3 mg/dL (8.7-10.4); Carbon Dioxide 30 mmol/L (20-30); Chloride 102 mmol/L (98-107); Glucose 114 mg/dL (74-106); Potassium 3.9 mmol/L (3.5-5.1); Sodium 137 mmol/L (136-145)
[2023-11-04 07:59] LABS: Albumin 2.8 g/dL (3.2-4.8); Aspartate Aminotransferase 90 U/L (13-40); Bilirubin, Total 0.5 mg/dL (0.2-1.0); Total Protein 7.8 g/dL (5.7-8.2)
[2023-11-04 08:00] VITALS: PULSE 112
[2023-11-04 09:00] VITALS: BP 150/83; PULSE 112; RESP 20; TEMP 97.5; O2SAT 99
[2023-11-04 12:15] VITALS: BP 143/72; PULSE 112
[2023-11-04] MEDS: cefTRIAXone 1GM/50ML D5W 50 ML IV SCH (12:30)
[2023-11-04] MEDS: MORPHINE SULFATE INJ 2 MG/ml SYRG IV PRN (12:31)
[2023-11-04 17:00] VITALS: BP 130/96; PULSE 149; RESP 20; TEMP 97.4; O2SAT 92
[2023-11-04 18:34] LABS: Erythrocyte Sedimentation Rate 48 mm/hr (0-20)
[2023-11-04 20:00] VITALS: BP 141/75; PULSE 127; PULSE 98; RESP 18; TEMP 97.5; O2SAT 97
[2023-11-04] MEDS: MORPHINE SULFATE 4 MG/ML SYR/VIAL IV PRN (20:50)
[2023-11-05 06:36] LABS: Basophils # (auto) 0 10 ^3/uL (0-0.2); Basophils % (auto) 0.8 % (0.0-2.0); Eosinophils # (auto) 0.1 10 ^3/uL (0-0.8); Eosinophils % (auto) 3.1 % (0.0-7.0); Hematocrit 34.9 % (41.0-53.0); Hemoglobin 11.4 g/dL (13.5-17.5); Lymphocytes # (auto) 0.9 10 ^3/uL (0.4-5.4); Lymphocytes % (auto) 19.8 % (10.0-50.0); Mean Corpuscular Hemoglobin 31.3 pg (28.0-32.0); Mean Corpuscular Hgb Conc. 32.8 g/dL (32.0-36.0); Mean Corpuscular Volume 95.3 fL (80.0-100.0); Monocytes # (auto) 0.5 10 ^3/uL (0-1.3); Monocytes % (auto) 12.3 % (0.0-12.0); Neutrophils # (auto) 2.8 10 ^3/uL (1.6-8.6); Nucleated Red Blood Cells % 0.3 %; Red Blood Cells 3.66 10^6/uL (4.5-5.90); Red Cell Distribution Width 14.9 % (11.8-14.3); White Blood Cell 4.4 10^3/uL (4.4-10.8)
[2023-11-05 06:50] LABS: Alanine Aminotransferase 38 U/L (7-40); Albumin 2.6 g/dL (3.2-4.8); Alkaline Phosphatase 93 U/L (46-116); Anion Gap 4 (5-15); Aspartate Aminotransferase 80 U/L (13-40); BUN/Creatinine Ratio 12.5 (10.0-20.0); Bilirubin, Total 0.4 mg/dL (0.2-1.0); Blood Urea Nitrogen 10 mg/dL (9-23); Calcium 7.9 mg/dL (8.7-10.4); Carbon Dioxide 26 mmol/L (20-30); Chloride 107 mmol/L (98-107); Glucose 131 mg/dL (74-106); Magnesium 1.9 mg/dL (1.6-2.6); Potassium 4.2 mmol/L (3.5-5.1); Sodium 137 mmol/L (136-145); Total Protein 7.1 g/dL (5.7-8.2)
[2023-11-05 08:00] VITALS: PULSE 133
[2023-11-05 08:20] VITALS: BP 128/84; PULSE 148; RESP 18; TEMP 98.1; O2SAT 98
[2023-11-05 11:43] LABS: Hepatitis A Total Antibody Positive (Negative); Hepatitis B Surface Antibody Negative (Negative); Hepatitis B Surface Antigen Negative (Negative)
[2023-11-05 11:50] LABS: Hepatitis B Core Total AB Positive (Negative); Hepatitis C Antibody Positive (Negative)
[2023-11-05] MEDS: ENOXAPARIN SOD 100 MG/1 ML SYRINGE SC SCH (11:51)
[2023-11-05 16:20] VITALS: BP 133/91; PULSE 108; RESP 20; TEMP 98.3; O2SAT 98
[2023-11-05 19:33] VITALS: PULSE 97
[2023-11-05 20:23] VITALS: PULSE 98; RESP 18; O2SAT 98
[2023-11-05 21:41] VITALS: BP 119/78; PULSE 98; RESP 18; TEMP 98; O2SAT 98
[2023-11-06 05:00] VITALS: BP 109/55; PULSE 85; RESP 18; TEMP 97.4; O2SAT 100
[2023-11-06 06:10] LABS: Basophils # (auto) 0 10 ^3/uL (0-0.2); Basophils % (auto) 0.7 % (0.0-2.0); Eosinophils # (auto) 0.1 10 ^3/uL (0-0.8); Eosinophils % (auto) 3.1 % (0.0-7.0); Hematocrit 35.8 % (41.0-53.0); Hemoglobin 11.6 g/dL (13.5-17.5); Lymphocytes # (auto) 0.9 10 ^3/uL (0.4-5.4); Lymphocytes % (auto) 27.6 % (10.0-50.0); Mean Corpuscular Hemoglobin 30.7 pg (28.0-32.0); Mean Corpuscular Hgb Conc. 32.6 g/dL (32.0-36.0); Mean Corpuscular Volume 94.3 fL (80.0-100.0); Monocytes # (auto) 0.5 10 ^3/uL (0-1.3); Monocytes % (auto) 14.6 % (0.0-12.0); Neutrophils # (auto) 1.8 10 ^3/uL (1.6-8.6); Nucleated Red Blood Cells % 0.1 %; Red Blood Cells 3.79 10^6/uL (4.5-5.90); White Blood Cell 3.4 10^3/uL (4.4-10.8)
[2023-11-06 06:18] LABS: Alanine Aminotransferase 39 U/L (7-40); Albumin 2.7 g/dL (3.2-4.8); Alkaline Phosphatase 92 U/L (46-116); Anion Gap 5 (5-15); Aspartate Aminotransferase 88 U/L (13-40); BUN/Creatinine Ratio 12.2 (10.0-20.0); Bilirubin, Total 0.4 mg/dL (0.2-1.0); Blood Urea Nitrogen 9 mg/dL (9-23); Carbon Dioxide 28 mmol/L (20-30); Chloride 109 mmol/L (98-107); Glucose 109 mg/dL (74-106); Potassium 3.8 mmol/L (3.5-5.1); Sodium 142 mmol/L (136-145)
[2023-11-06 06:26] LABS: INR 1.25 (0.9-1.15); Partial Thromboplastin Time 35.3 SEC (24.5-34.5); Prothrombin Time 12.9 sec (9.3-11.8)
[2023-11-06 08:00] VITALS: PULSE 98; RESP 18; O2SAT 98
[2023-11-06 09:00] VITALS: BP 113/75; PULSE 93; RESP 18; TEMP 97.5; O2SAT 100
[2023-11-06] MEDS: APIXABAN 5 MG TAB PO SCH (09:53)
[2023-11-06 13:00] VITALS: BP 125/76; PULSE 73; RESP 18; TEMP 97.6; O2SAT 98
[2023-11-06] MEDS ORDERED: ceFAZolin 2 GM/D5W50ml 50 ML IV SCH (14:00)
[2023-11-06] MEDS ORDERED: CEPH250C PO (14:02)
[2023-11-06] MEDS ORDERED: METO25TA93 PO (14:02)
[2023-11-06] MEDS ORDERED: HYDR-4902 PO (15:50)
[2023-11-06 17:00] VITALS: BP 132/78; PULSE 48; RESP 18; TEMP 97.9; O2SAT 96
== END 2023-11-06 17:05 | disposition home or self-care (01) | DRG 344 ==
LOC: EDUNIT# 17:35 → ER 17:35 → EDBD 17:35 → TELE 10-30 04:05 → TELE-WESTW 10-30 23:50
PROVIDERS: ADMIT Internal Medicine Pulmonary Disease; ATTEND Internal Medicine Pulmonary Disease
DX: E11.69 Type 2 diabetes mellitus with other specified complication (principal); M86.9 Osteomyelitis, unspecified; D61.818 Other pancytopenia; E44.0 Moderate protein-calorie malnutrition; B19.10 Unspecified viral hepatitis B without hepatic coma; I48.20 Chronic atrial fibrillation, unspecified; I47.10 Supraventricular tachycardia, unspecified; G54.6 Phantom limb syndrome with pain; T87.44 Infection of amputation stump, left lower extremity; K52.1 Toxic gastroenteritis and colitis; I48.92 Unspecified atrial flutter; E11.42 Type 2 diabetes mellitus with diabetic polyneuropathy; L03.818 Cellulitis of other sites; T36.95XA Adverse effect of unspecified systemic antibiotic, initial encounter; Y92.238 Other place in hospital as the place of occurrence of the external cause; G47.33 Obstructive sleep apnea (adult) (pediatric); I45.10 Unspecified right bundle-branch block; F17.210 Nicotine dependence, cigarettes, uncomplicated; I50.42 Chronic combined systolic (congestive) and diastolic (congestive) heart failure; I11.0 Hypertensive heart disease with heart failure; D64.89 Other specified anemias; L02.416 Cutaneous abscess of left lower limb; B19.20 Unspecified viral hepatitis C without hepatic coma; E11.65 Type 2 diabetes mellitus with hyperglycemia; K74.60 Unspecified cirrhosis of liver; Y83.5 Amputation of limb(s) as the cause of abnormal reaction of the patient, or of later complication, without mention of misadventure at the time of the procedure; Z91.148 Patient's other noncompliance with medication regimen for other reason; Z63.4 Disappearance and death of family member; Z79.01 Long term (current) use of anticoagulants; Z89.512 Acquired absence of left leg below knee; Z79.84 Long term (current) use of oral hypoglycemic drugs; Z79.899 Other long term (current) drug therapy; Y92.098 Other place in other non-institutional residence as the place of occurrence of the external cause
CPT/HCPCS: 36415; 71045; 71275; 73562; 73718; 80048; 80053; 80162; 80202; 80307; 80320; 81001; 82306; 82607; 82746; 82962; 83010; 83540; 83550; 83605; 83615; 83735; 83880; 84100; 84443; 84484; 85007; 85025; 85027; 85045; 85048; 85379; 85610; 85652; 85730; 86141; 86704; 86706; 86708; 86803; 87040; 87045; 87081; 87205; 87340; 87427; 87493; 93005; 93970; 96361; 96374; 96375; G0378; J1815